=== PATIENT | male | born 1985 | race American Indian/Alaskan Native ===

== ENCOUNTER 2017-08-16 11:12 | Emergency (ER) | payer OTHER ==
[2017-08-16 11:19] VITALS: BP 127/89
[2017-08-16] MEDS ORDERED: XYLOCAINE 1% 20 mL INFILTRATI ONE (11:46)
[2017-08-16] MEDS ORDERED: BOOSTRIX IM ONE (11:46)
--- NOTE | 2017-08-16 11:56 | Emergency Department Report ---
Abscess Boil HPI - HPI Chief Complaint: Skin/Abscess/Foreign Body Stated Complaint: cyst/armpit Time Seen by Provider: 08/16/17 11:24 Duration: 1 Week Location: Upper Extremity Severity: Mild History: Yes Pain, No Fever, No Purulent Drainage, No Numbness, No Foreign Body , No Previous History, No Insect Bite HPI: This is a 31-yaer-old male nontoxic, well nourished in appearance, no acute signs of distress presents to the ED with c/o of left axilla abscess x1 week. Patient stated started with small bump and developed to bigger boil. Patient denies any trauma to the region. Denies any pus, drainage, fever, chills, nausea, vomiting headache or stiff neck. Patient denies any chest pain or shortness of breath. Denies any allergies. Past medical history includes asthma. Home Medications: Previous Rx's Medication Instructions Recorded Last Taken Type Albuterol Sulfate [Ventolin HFA] 2 puff IH Q4H PRN #1 hfa.aer.ad 01/26/15 Unknown Rx Loratadine [Claritin] 10 mg PO DAILY #30 tablet 01/26/15 Unknown Rx Sulfamethoxazole/Trimethoprim 1 each PO BID #14 tablet 08/16/17 Unknown Rx [Bactrim DS TAB] traMADol [Ultram] 50 mg PO Q6HR PRN #12 tablet 08/16/17 Unknown Rx Allergies/Adverse Reactions: Allergies Allergy/AdvReac Type Severity Reaction Status Date / Time No Known Allergies Allergy Unverified 01/26/15 12:31 ED Review of Systems ROS: Stated complaint: cyst/armpit Other details as noted in HPI Constitutional: denies: chills, fever Eyes: denies: eye pain, eye discharge, vision change ENT: denies: ear pain, throat pain Respiratory: denies: cough, shortness of breath, wheezing Cardiovascular: denies: chest pain, palpitations Endocrine: no symptoms reported Gastrointestinal: denies: abdominal pain, nausea, diarrhea Genitourinary: denies: urgency, dysuria Musculoskeletal: denies: back pain, joint swelling, arthralgia Skin: denies: rash, lesions Neurological: denies: headache, weakness, paresthesias Psychiatric: denies: anxiety, depression Hematological/Lymphatic: denies: easy bleeding, easy bruising ED Past Medical Hx - Past Medical History Hx Asthma: Yes - Surgical History Past Surgical History?: No - Social History Smoking Status: Current Every Day Smoker Substance Use Type: Alcohol, Marijuana - Medications Home Medications: Home Medications Medication Instructions Recorded Confirmed Last Taken Type Albuterol Sulfate [Ventolin HFA] 2 puff IH Q4H PRN #1 hfa.aer.ad 01/26/15 Unknown Rx Loratadine [Claritin] 10 mg PO DAILY #30 tablet 01/26/15 Unknown Rx Sulfamethoxazole/Trimethoprim 1 each PO BID #14 tablet 08/16/17 Unknown Rx [Bactrim DS TAB] traMADol [Ultram] 50 mg PO Q6HR PRN #12 tablet 08/16/17 Unknown Rx ED Abscess Boil Physical Exam - Exam General: Vital signs noted. No distress. Alert and acting appropriately. GENERAL: The patient is a well-developed, well-nourished female in no apparent distress. Patient is alert and acting appropriately for age. Alert and oriented 3, no apparent distress, normal gait, atraumatic. HEENT: Head is normocephalic and atraumatic. PERRL, Extraocular muscles are intact. Pupils are equal, round, and reactive to light and accommodation. Nares appeared normal. Mouth is well hydrated and without lesions. Mucous membranes are moist. Posterior pharynx clear of any exudate or lesions. Mouth is well hydrated and without lesions. Tonsils not erythematous or swollen. Uvula midline. Tongue elevated. Mucous members are moist. Posterior pharynx clear, no exudate or lesions. Patent airways. NECK: Supple. No carotid bruits. No lymphadenopathy or thyromegaly.nontender. No meningitic signs are noted. LUNGS: Clear to auscultation. Non labor breathing. No intercostal retractions. Symmetrical with respiration, no wheezing, no rales, or crackles. HEART: Regular rate and rhythm without murmur, rubs or gallops. No reproducible. S1, S2 present, regular rate and rhythm without murmur, no rubs, no gallops. ABDOMEN: Soft, nontender, and nondistended. Positive bowel sounds. No hepatosplenomegaly was noted. No guarding or rebound tenderness, negative epigastric bruit. Negative psoas sign, negative licona sign, negative McBurneys sign EXTREMITIES: Without any cyanosis, clubbing, rash, lesions or edema. Peripheral pulses intact. Capillary refill less than 2 seconds. Full range of motion bilaterally. NEUROLOGIC: Cranial nerves II through XII are grossly intact. Alert and oriented x 3. Normal gait. Symmetrical strength and sensation. Reflexes 2+ throughout. Cerebellar testing normal. GCS score of 15. PSYCHIATRIC: Normal affect with no suicidal or homicidal ideations. Size: 2 cm Exam: Yes Tenderness, Yes Fluctuance, Yes Normal Neurologic Exam, Yes Normal Circulation, No Surrounding Cellulites/Erythema, No Lymphangitis, No Crepitation , No Heart Murmur Exam: 2 cm induration and fluctuance to the right axillary region. No pus or drainage noted. Tenderness to touch. I & D Note - I & D Note I & D Note: Under sterile field, I used Betadine to cleanse the area. I then used 1% lidocaine plain with 25-gauge 5/8 needle to inject area for anesthetic purposes. Total volume injected 3 mL. I then used an 11 blade to make a 1 cm incision. About 2 mL's of purulent drainage has been noted. I then used a hemostat to break the abscess formation. I then used sterile 0.9% normal saline flush to flush the wound with total volume of 40 mL used. I then put a 1 /4 iodoform packing to the incision. A sterile 4 x 4 with tape has been applied as dressing. Bleeding is under control. Patient tolerated the procedure well with no signs of distress noted. ED Course Vital Signs 08/16/17 11:17 Temperature 98.2 F Pulse Rate 90 Blood Pressure 127/89 O2 Sat by Pulse 100 Oximetry - Reevaluation(s) Reevaluation #1: 08/16/17 11:55 Patient is speaking in full sentences with no signs of distress noted. Critical care attestation.: If time is entered above; I have spent that time in minutes in the direct care of this critically ill patient, excluding procedure time. ED Medical Decision Making - Medical Decision Making This is a 31-year-old male that presents with abscess. Patient is stable and was examined by me. I/D procedure performed and patient tolerated well. Patient received tetanus in the ED. Patient was instructed to return in 2 days for reassessment and packing removal. Patient received Bactrim at discharge. Patient was as educated on proper wound care. Patient was instructed Follow-up with a primary care doctor in 3-5 days or if symptoms worsen and continue return to emergency room as soon as possible. At time time of discharge, the patient does not seem toxic or ill in appearance. No acute signs of distress noted. Patient agrees to discharge treatment plan of care. No further questions noted by the patient. ED Disposition Clinical Impression: Encounter for incision and drainage procedure, Abscess Disposition: TO HOME OR SELFCARE Is pt being admited?: No Does the pt Need Aspirin: No Condition: Stable Instructions: Abscess Incision and Drainage (ED), Acute Wound Care (ED), Abscess (ED), Sulfamethoxazole/Trimethoprim (By mouth), Tramadol (By mouth) Additional Instructions: Follow-up with a primary care doctor in 3-5 days or if symptoms worsen and continue return to emergency room as soon as possible. Return in 2 days for reassessment and packing removal. Do not operate any machinery while taking Ultram due to drowsiness Prescriptions: Sulfamethoxazole/Trimethoprim [Bactrim DS TAB] 1 each PO BID #14 tablet traMADol [Ultram] 50 mg PO Q6HR PRN #12 tablet PRN Reason: Pain Referrals: PRIMARY CARE, [Primary Care Provider] - 3-5 Days SHAQUILLE OCHOA MD [Staff Physician] - 3-5 Days [facility] [Outside] - 3-5 Days Forms: Work/School Release Form(ED)
== END 2017-08-16 12:17 | disposition home or self-care (01) ==
LOC: ED 11:12
DX: L02.412 Cutaneous abscess of left axilla (principal); F17.200 Nicotine dependence, unspecified, uncomplicated; F12.10 Cannabis abuse, uncomplicated
CPT/HCPCS: 90471; 90715; 99282